=== PATIENT | male | born 1975 | race Caucasian/White ===

== ENCOUNTER 2018-12-21 18:41 | Emergency (ER) | payer OTHER ==
[~2018-12-21 18:41] MED LIST: Sodium Chloride Irrig Solution 250 ML BOT ONE
[2018-12-21] MEDS ORDERED: Triple Antibiotic Oint 1 GM Packet ONE (19:14)
== END 2018-12-21 19:50 | disposition home or self-care (01) ==
LOC: MADERS 18:41
DX: R04.0 Epistaxis (principal); E66.9 Obesity, unspecified
CPT/HCPCS: 30901